=== PATIENT | male | born 1940 | race Two or more races ===

== ENCOUNTER 2020-03-01 07:21 | Inpatient (IN) | payer MEDICARE, MEDICAID ==
[~2020-03-01] VITALS: Ht 170.2 cm; Wt 60.6 kg
[2020-03-01 08:26] LABS: Platelet Count (auto) 129 10^3/uL (140-450)
[2020-03-01 08:28] LABS: Hemoglobin 7.8 g/dL (13.5-17.5); Mean Corpuscular Hgb Conc. 29.1 g/dL (32.0-36.0); Mean Corpuscular Volume 58.6 fL (80.0-100.0)
[2020-03-01 08:30] LABS: Red Cell Distribution Width 22.8 % (11.8-14.3)
[2020-03-01 08:32] LABS: White Blood Cell 1.5 10^3/uL (4.4-10.8)
[2020-03-01 08:34] LABS: Band Neutrophils % (manual) 0; Basophils % (manual) 0 (0.0-2.0); Blast Cells 0; Metamyelocytes % 0; Myelocytes % 0; Promyelocytes % 0; Reactive Lymphocytes 0
[2020-03-01 08:37] LABS: Albumin 2.5 g/dL (3.4-5.0); Calcium 8.1 mg/dL (8.5-10.1); Potassium 3.8 mmol/L (3.5-5.1)
[2020-03-01 08:42] LABS: BUN/Creatinine Ratio 22.4; Bilirubin, Total 0.8 mg/dL (0.2-1.0); Total Protein 8.1 g/dL (6.4-8.2)
[2020-03-01 10:56] LABS: Urine Bacteria NONE SEEN /hpf (None Seen); Urine Blood Negative /uL (Negative); Urine Mucus FEW (None Seen); Urine Specific Gravity 1.019 (1.001-1.035); Urine WBC <1 /hpf (0 - 3)
[2020-03-01 12:02] LABS: Eosinophils % (manual) 4 (0-7); Lymphocytes % (manual) 34 (10.0-50.0); Monocytes % (manual) 10 (0-12)
[2020-03-01] MEDS ORDERED: MORPHINE SULF INJ 2 MG/ML SYRINGE 1ML IV PRN ×3 (13:15→16:45)
[2020-03-01] MEDS ORDERED: NITROGLYCERIN 0.4 MG SL TAB SL PRN ×2 (13:15→16:45)
[2020-03-01] MEDS ORDERED: DOCUSATE SOD 100 MG CAP PO PRN (16:45)
[2020-03-01] MEDS ORDERED: ACETAMINOPHEN 325 MG TAB PO PRN (16:45)
[2020-03-01] MEDS ORDERED: LORazepam 0.5 MG TAB PO PRN (16:45)
[2020-03-01] MEDS ORDERED: LISINOPRIL 20 MG TAB PO ONE (16:45)
[2020-03-01] MEDS ORDERED: HYDROcodone-ACET 5/325MG TAB PO PRN (16:45)
[2020-03-01] MEDS ORDERED: ONDANSETRON HCL 4 MG/2 ML VIAL IV PRN (16:45)
[2020-03-01] MEDS ORDERED: ALUM & MAG HYDROX-SIMETH LIQ(MAALOX) 30 ML PO PRN (16:45)
[2020-03-01] MEDS: SODIUM CHLORIDE 0.9% 1,000 ML IV SCH (17:00)
[2020-03-01 19:33] LABS: Cholesterol 69 mg/dL (< 200); HDL Cholesterol 20 mg/dL (40-59); LDL Cholesterol 44 mg/dL (< 100); Triglycerides 65 mg/dL (< 150)
[2020-03-01] MEDS: ATORVASTATIN 20 MG TAB PO SCH (21:59)
[2020-03-01] MEDS: hydrALAZINE HCL 20 MG/ML VL IV PRN (22:00)
[2020-03-02 00:30] VITALS: BP 129/70
--- NOTE | 2020-03-02 00:30 | NUR ---
Telemetry admit from ER DIANA MAJOR admitted to Telemetry unit after SBAR received. Patient oriented to IVIS JACKSON, RN primary RN, unit, room, bed, and unit policies regarding patient care and visiting hours. Patient now on continuous telemetry monitoring, tele box #28 and telemetry reading on arrival to unit is 98 HR. Patient placed on bedside oxygen, weighed by bedscale and encouraged to call if they need something. All questions and concerns addressed in burkinan patient verbalized understanding.
--- NOTE | 2020-03-02 01:00 | NUR ---
no home meds Patient states he takes no home medication, He states he has no diseases. Call light within reach. Will continue to monitor.
[2020-03-02 05:00] VITALS: BP 151/81
[2020-03-02 05:13] LABS: Basophils # (auto) 0 10 ^3/uL (0-0.2); Basophils % (auto) 0.9 % (0.0-2.0); Hemoglobin 7.3 g/dL (13.5-17.5); Lymphocytes # (auto) 0.4 10 ^3/uL (0.4-5.4); Monocytes # (auto) 0.1 10 ^3/uL (0-1.3); Neutrophils # (auto) 0.8 10 ^3/uL (1.6-8.6)
[2020-03-02 05:16] LABS: Eosinophils # (auto) 0 10 ^3/uL (0-0.8); Eosinophils % (auto) 3.5 % (0.0-7.0); Lymphocytes % (auto) 31.1 % (10.0-50.0); Mean Corpuscular Hemoglobin 17.3 pg (28.0-32.0); Mean Corpuscular Hgb Conc. 29.3 g/dL (32.0-36.0); Mean Corpuscular Volume 58.9 fL (80.0-100.0); Monocytes % (auto) 9.8 % (0.0-12.0); Neutrophils % (auto) 54.7 % (37.0-80.0); Nucleated Red Blood Cells % 0.2 %; Platelet Count (auto) 107 10^3/uL (140-450); Red Blood Cells 4.25 10^6/uL (4.5-5.90)
[2020-03-02 05:33] LABS: Chloride 117 mmol/L (98-107); Potassium 3.6 mmol/L (3.5-5.1); Sodium 142 mmol/L (136-145)
[2020-03-02 05:35] LABS: % Iron Saturation 5.1 % (20-55)
[2020-03-02 05:39] LABS: INR 1.24 (0.9-1.15); Partial Thromboplastin Time 27.9 sec (23.0-31.2)
[2020-03-02 05:47] LABS: Alanine Aminotransferase 16 U/L (16-61); Albumin 2.1 g/dL (3.4-5.0); Alkaline Phosphatase 123 U/L (45-117); Anion Gap 5 (5-15); Aspartate Aminotransferase 39 U/L (15-37); BUN/Creatinine Ratio 25.7; Bilirubin, Total 0.7 mg/dL (0.2-1.0); Blood Urea Nitrogen 19 mg/dL (7-18); CRP High Sensitivity 1.73 mg/dL (< 0.3); Calcium 7.5 mg/dL (8.5-10.1); Carbon Dioxide 20 mmol/L (21-32); GFR African American 131 mL/min; GFR Non-African American 108 mL/min; Glucose 80 mg/dL (74-106); Lactate Dehydrogenase 162 U/L (87-241); Magnesium 2.1 mg/dL (1.6-2.6); Phosphorus 2.4 mg/dL (2.5-4.90); Total Protein 7.4 g/dL (6.4-8.2); Uric Acid 5.1 mg/dL (3.5-7.2)
[2020-03-02] MEDS: hydrALAZINE HCL 20 MG/ML VL IV PRN (05:54)
[2020-03-02 06:04] LABS: Red Cell Distribution Width 22.6 % (11.8-14.3)
[2020-03-02 06:05] LABS: White Blood Cell 1.6 10^3/uL (4.4-10.8)
--- NOTE | 2020-03-02 06:05 | NUR ---
CRITICAL LAB WBC 1.6. Patients previous WBC 1.5 yesterday morning. Patient has a hematology/oncology consult. Will continue to monitor. Hospitalist aware.
--- NOTE | 2020-03-02 07:00 | NUR ---
Opening Shift Note Received report on the patient. Awake lying in bed. Patient shows no signs of distress at this time. Discussed the plan of care with the patient. Bed in lowest position, side rails up x2, and the call light is within reach.
--- NOTE | 2020-03-02 07:39 | NUR ---
closing note Endorsed care to day shift RN no distress noted.
[2020-03-02 09:08] VITALS: BP 107/55
[2020-03-02] MEDS: SODIUM CHLORIDE 0.9% 1,000 ML IV SCH (09:42)
[2020-03-02] MEDS: LISINOPRIL 20 MG TAB PO SCH (09:43)
--- NOTE | 2020-03-02 11:32 | NUR ---
Assessment Patient is an 79-year-old male who is alert and oriented. Patient primary language is Ecuadorean. Per patient prior to admission he lived with Syed. Patient advise me to speak to Syed in regards of any discharge plan. Placed call to Syed ). Per Syed she is patient caregiver. Per Syed patient functioned with assistance. Per Syed she helps patient with his ADLs. Per Syed patient has a walker, wheelchair and cane for home use. Per Syed she has been having difficulties caring for patient stating patient has difficulty walking and is very weak and would like for him to be placed at a skill nursing facility for rehabilitation. Advised patient there is a social service consult for SNF placement. Provided Information and choice letter. Per Syed she does not have any preference. Informed Syed clinical information will be faxed to [facility]. Informed Syed she has the right to participate in all discharge planning. Syed verbalized understanding and agreed to discharge plan. Faxed clinical information to [facility]. Per Bebe with [facility] they can accept patient but they will need a (-) COVID test before patient can transfer to facility. Informed DOMINIQUE Mcdonnell a COVID test will be needed before patient can be transfer to a skill nursing facility. Addendum: 03/02/20 at 1138 by TYRONE HOBBS Amended: Links added.
[2020-03-02 13:00] VITALS: BP 106/63
--- NOTE | 2020-03-02 13:09 | NUR ---
Dr Swanson at bedside. No new orders received
[2020-03-02 14:41] LABS: Ferritin 5.4 ng/mL (10-322)
--- NOTE | 2020-03-02 15:30 | NUR ---
D/C planning [facility] can also accept patient.
[2020-03-02 16:00] LABS: Hepatitis B Surface Antigen Negative (Negative)
[2020-03-02 16:01] LABS: Hepatitis C Antibody Negative (Negative)
[2020-03-02 17:00] VITALS: BP 138/78
[2020-03-02 18:59] LABS: Urine WBC None Seen /hpf (0 - 3)
[2020-03-02 19:25] LABS: Alcohol, Urine < 3.0 mg/dL (0-10); Amphetamine Screen, Urine NEGATIVE (NEGATIVE); Barbiturate Scree,Urine NEGATIVE (NEGATIVE); Benzodiazephine Screen, Urine NEGATIVE (NEGATIVE); Cannabinoid Screen, Urine NEGATIVE (NEGATIVE); Cocaine Screen, Urine NEGATIVE (NEGATIVE); Opiate Scree,Urine NEGATIVE (NEGATIVE); Phencyclidine Screen, Urine NEGATIVE (NEGATIVE)
[2020-03-02 19:47] LABS: Urine Bacteria NONE SEEN /hpf (None Seen); Urine Blood Negative /uL (Negative); Urine Specific Gravity 1.018 (1.001-1.035)
[2020-03-02 20:33] LABS: % Iron Saturation 5.9 % (20-55)
[2020-03-02] MEDS: ATORVASTATIN 20 MG TAB PO SCH (21:52)
[2020-03-02 22:00] VITALS: BP 140/70
[2020-03-03] MEDS: SODIUM CHLORIDE 0.9% 1,000 ML IV SCH ×2 (02:23→18:01)
--- NOTE | 2020-03-03 02:46 | NUR ---
IV insertion IV access obtained, via clean sterile technique by inserting 22 gauge catheter at left upper arm after 1 attempt. IV secured properly. No trauma to site. Patient tolerated well.
[2020-03-03 05:00] VITALS: BP 141/68
[2020-03-03 08:35] LABS: % Iron Saturation 5.1 % (20-55)
[2020-03-03 08:43] LABS: Basophils # (auto) 0 10 ^3/uL (0-0.2); Eosinophils # (auto) 0.1 10 ^3/uL (0-0.8); Lymphocytes # (auto) 0.6 10 ^3/uL (0.4-5.4); Monocytes # (auto) 0.2 10 ^3/uL (0-1.3); Neutrophils # (auto) 0.6 10 ^3/uL (1.6-8.6)
[2020-03-03 08:44] LABS: Basophils % (auto) 0.4 % (0.0-2.0); Eosinophils % (auto) 5.2 % (0.0-7.0); Hematocrit 23.3 % (41.0-53.0); Lymphocytes % (auto) 37.9 % (10.0-50.0); Mean Corpuscular Hemoglobin 17.3 pg (28.0-32.0); Mean Corpuscular Hgb Conc. 29.7 g/dL (32.0-36.0); Mean Corpuscular Volume 58.4 fL (80.0-100.0); Monocytes % (auto) 13.2 % (0.0-12.0); Neutrophils % (auto) 43.3 % (37.0-80.0); Nucleated Red Blood Cells % 0.5 %; Platelet Count (auto) 93 10^3/uL (140-450); Red Blood Cells 3.99 10^6/uL (4.5-5.90)
[2020-03-03 08:45] LABS: Red Cell Distribution Width 22.6 % (11.8-14.3)
[2020-03-03 08:48] LABS: Hemoglobin 6.9 g/dL (13.5-17.5); White Blood Cell 1.5 10^3/uL (4.4-10.8)
[2020-03-03 09:00] VITALS: BP 125/51
[2020-03-03] MEDS: LISINOPRIL 20 MG TAB PO SCH (10:00)
[2020-03-03 13:00] VITALS: BP 149/73
[2020-03-03 13:41] VITALS: BP 149/73
[2020-03-03 13:55] VITALS: BP 154/74
[2020-03-03 17:00] VITALS: BP 156/84
--- NOTE | 2020-03-03 20:22 | NUR ---
IV DC'd Upon inspection, IV had infiltrated. Site was slightly reddened. IV removed with catheter fully intact, pressure dressing placed. Patient tolerated intervention well.
--- NOTE | 2020-03-03 21:06 | NUR ---
Patient Refusing IV Patient refused new IV insertion at this time. Educated patient on need for IV access, patient verbalized understanding and continued to refuse IV insertion. Will continue to monitor.
[2020-03-03] MEDS: ATORVASTATIN 20 MG TAB PO SCH (21:53)
--- NOTE | 2020-03-03 21:59 | NUR ---
Patient refused vitals per NA.
--- NOTE | 2020-03-03 23:35 | NUR ---
Opening Shift Note Assumed care of patient after receiving report. Patient is awake and alert with no S/S of distress/SOB or pain. Call light within reach, bed in lowest locked position, HOB semi fowlers. Instructed on POC and to call for assistance PRN, will continue to monitor for changes Q1hr and PRN. Addendum: 03/03/20 at 2341 by Lary Gross RN Time was around 1900.
--- NOTE | 2020-03-04 06:00 | NUR ---
Patient refused vitals. Patient resting in bed comfortably, no s/s of distress. Patient 'doesn't want to be bothered.'
[2020-03-04 08:00] VITALS: BP 148/58
[2020-03-04 09:51] LABS: Basophils # (auto) 0 10 ^3/uL (0-0.2); Eosinophils # (auto) 0.1 10 ^3/uL (0-0.8); Lymphocytes # (auto) 0.5 10 ^3/uL (0.4-5.4); Monocytes # (auto) 0.2 10 ^3/uL (0-1.3); Neutrophils # (auto) 0.8 10 ^3/uL (1.6-8.6)
[2020-03-04] MEDS: SODIUM CHLORIDE 0.9% 1,000 ML IV SCH (09:51)
[2020-03-04] MEDS: LISINOPRIL 20 MG TAB PO SCH (09:52)
[2020-03-04 09:53] LABS: Basophils % (auto) 0.8 % (0.0-2.0); Hematocrit 29.7 % (41.0-53.0); Lymphocytes % (auto) 29.9 % (10.0-50.0); Mean Corpuscular Hemoglobin 18.6 pg (28.0-32.0); Mean Corpuscular Hgb Conc. 30.2 g/dL (32.0-36.0); Mean Corpuscular Volume 61.6 fL (80.0-100.0); Neutrophils % (auto) 53.3 % (37.0-80.0); Nucleated Red Blood Cells % 0.1 %; Platelet Count (auto) 102 10^3/uL (140-450); Red Blood Cells 4.83 10^6/uL (4.5-5.90); Red Cell Distribution Width 25.3 % (11.8-14.3)
[2020-03-04 09:59] LABS: White Blood Cell 1.6 10^3/uL (4.4-10.8)
[2020-03-04 10:07] LABS: Albumin 2.4 g/dL (3.4-5.0); BUN/Creatinine Ratio 20.3; Calcium 8.2 mg/dL (8.5-10.1); Potassium 3.7 mmol/L (3.5-5.1)
[2020-03-04 10:11] LABS: Bilirubin, Total 1.1 mg/dL (0.2-1.0); Total Protein 7.8 g/dL (6.4-8.2)
[2020-03-04 12:00] VITALS: BP 137/72
--- NOTE | 2020-03-04 14:35 | NUR ---
Nutrition Assessment Notes Please refer to link for full assessment notes. Est Energy needs: 7118-3751 kcals (23-25 kcal/kgBW) Est Protein needs: 61-67 gms/day (1.0-1.1 gm/kgBW) Will continue to monitor and reassess prn. Addendum: 03/04/20 at [address] Amended: Links added.
[2020-03-04 16:58] VITALS: BP 123/62
--- NOTE | 2020-03-04 19:20 | NUR ---
Opening Shift Note Assumed care of patient after receiving report from day RN. Patient awake and alert x3, with no S/S of distress/SOB or pain. Call light within reach, bed in lowest locked position, HOB semi fowlers. Instructed on POC and to call for assist PRN, will continue to monitor for changes Q1hr and PRN.
[2020-03-04] MEDS ORDERED: LORazepam 2MG/ML-1ML VIAL IV PRN (20:45)
[2020-03-04 22:00] VITALS: BP 162/91
[2020-03-04] MEDS: ATORVASTATIN 20 MG TAB PO SCH (22:00)
[2020-03-04] MEDS: hydrALAZINE HCL 20 MG/ML VL IV PRN (22:54)
--- NOTE | 2020-03-04 23:06 | NUR ---
IV insertion Patient had been refusing new IV insertion, stating he has been poked too many times. Patient was educated with director public service about need for new IV for medication and fluid administration. Patient accepted new IV insertion. 22 gauge placed in the right forearm using clean sterile technique. Patient tolerated intervention well with no s/s of distress. IV secured.
--- NOTE | 2020-03-04 23:14 | NUR ---
Elevated BP Patient had elevated BP of 162/91 and HR 89, patient had been repositioned and slightly agitated at this time. BP was reassessed and read BP156/86 and HR 87. PRN hydralazine given at this time. Will reassess.
[2020-03-05] MEDS: SODIUM CHLORIDE 0.9% 1,000 ML IV SCH ×2 (04:00→20:40)
[2020-03-05 05:00] VITALS: BP 125/66
[2020-03-05 05:53] LABS: Basophils # (auto) 0 10 ^3/uL (0-0.2); Eosinophils # (auto) 0.1 10 ^3/uL (0-0.8); Lymphocytes # (auto) 0.6 10 ^3/uL (0.4-5.4); Mean Corpuscular Volume 60.6 fL (80.0-100.0); Monocytes # (auto) 0.2 10 ^3/uL (0-1.3); Neutrophils # (auto) 0.8 10 ^3/uL (1.6-8.6)
[2020-03-05 05:55] LABS: Basophils % (auto) 0.7 % (0.0-2.0); Eosinophils % (auto) 4.3 % (0.0-7.0); Hematocrit 27.1 % (41.0-53.0); Hemoglobin 8.3 g/dL (13.5-17.5); Lymphocytes % (auto) 35.9 % (10.0-50.0); Mean Corpuscular Hemoglobin 18.6 pg (28.0-32.0); Mean Corpuscular Hgb Conc. 30.7 g/dL (32.0-36.0); Monocytes % (auto) 12.5 % (0.0-12.0); Neutrophils % (auto) 46.6 % (37.0-80.0); Nucleated Red Blood Cells % 0.3 %; Platelet Count (auto) 125 10^3/uL (140-450); Red Blood Cells 4.47 10^6/uL (4.5-5.90)
[2020-03-05 06:08] LABS: Albumin 2.2 g/dL (3.4-5.0); Calcium 7.7 mg/dL (8.5-10.1); Potassium 3.5 mmol/L (3.5-5.1)
[2020-03-05 06:09] LABS: Red Cell Distribution Width 24.9 % (11.8-14.3)
[2020-03-05 06:10] LABS: White Blood Cell 1.6 10^3/uL (4.4-10.8)
[2020-03-05 06:11] LABS: BUN/Creatinine Ratio 31.3; Bilirubin, Total 0.8 mg/dL (0.2-1.0); Total Protein 7.3 g/dL (6.4-8.2)
--- NOTE | 2020-03-05 06:59 | NUR ---
Critical lab WBC of 1.6. MD aware. No change.
[2020-03-05 08:00] VITALS: BP 118/67
--- NOTE | 2020-03-05 08:10 | NUR ---
MD ROUNDS DR Sanaz MONTERO AT BEDSIDE. METAL WEATHER STRIPPER AT BEDSIDE. PATIENT AGREEING TO MRI. WILL CONTINUE TO MONITOR
--- NOTE | 2020-03-05 08:15 | NUR ---
Opening Shift Note Assumed care of patient, awake and alert. No S/S of distress/SOB or pain. Bed in lowest/locked position, bed rails up x2, call light within reach. Instructed on POC and to call for assist PRN. Will continue to monitor for changes Q1hr and PRN.
--- NOTE | 2020-03-05 08:15 | NUR ---
IV FLUIDS PATIENT REFUSING IV FLUIDS AT THIS TIME. WILL CONTINUE TO MONITOR
[2020-03-05] MEDS: LISINOPRIL 20 MG TAB PO SCH (09:05)
--- NOTE | 2020-03-05 11:35 | NUR ---
ELECTROENCEPHALOGRAM EEG COMPLETED AT BEDSIDE. PRIMARY RN ISIDRO AWARE.
[2020-03-05 11:56] VITALS: BP 129/76
[2020-03-05 16:51] VITALS: BP 131/73
--- NOTE | 2020-03-05 19:40 | NUR ---
Opening Shift Note Assumed care of patient, awake and alert. No S/S of distress/SOB or pain. Bed is locked in lowest position with call light within reach. Instructed on POC and to call for assist PRN, will continue to monitor for changes Q1hr and PRN.
[2020-03-05] MEDS: ATORVASTATIN 20 MG TAB PO SCH (21:56)
[2020-03-05 22:00] VITALS: BP 122/71
[2020-03-06 05:00] VITALS: BP 147/72
[2020-03-06 05:08] LABS: Basophils # (auto) 0 10 ^3/uL (0-0.2); Basophils % (auto) 0.7 % (0.0-2.0); Eosinophils # (auto) 0.1 10 ^3/uL (0-0.8); Hemoglobin 8.6 g/dL (13.5-17.5); Lymphocytes # (auto) 0.6 10 ^3/uL (0.4-5.4); Nucleated Red Blood Cells % 0.2 %
[2020-03-06 05:10] LABS: Hematocrit 28.7 % (41.0-53.0); Lymphocytes % (auto) 38.4 % (10.0-50.0); Mean Corpuscular Hemoglobin 18.3 pg (28.0-32.0); Mean Corpuscular Volume 61.2 fL (80.0-100.0); Monocytes # (auto) 0.2 10 ^3/uL (0-1.3); Monocytes % (auto) 14.2 % (0.0-12.0); Neutrophils # (auto) 0.7 10 ^3/uL (1.6-8.6); Neutrophils % (auto) 40.7 % (37.0-80.0); Platelet Count (auto) 86 10^3/uL (140-450); Red Blood Cells 4.69 10^6/uL (4.5-5.90)
[2020-03-06 05:26] LABS: Albumin 2.2 g/dL (3.4-5.0); Calcium 7.7 mg/dL (8.5-10.1); Potassium 3.7 mmol/L (3.5-5.1)
--- NOTE | 2020-03-06 05:27 | NUR ---
CRITICAL WBC Critical lab WBC of 1.6. MD is aware of the critically low WBC.
[2020-03-06 05:28] LABS: Red Cell Distribution Width 24.7 % (11.8-14.3); White Blood Cell 1.6 10^3/uL (4.4-10.8)
[2020-03-06 05:29] LABS: BUN/Creatinine Ratio 25.4; Bilirubin, Total 0.8 mg/dL (0.2-1.0); Total Protein 7.4 g/dL (6.4-8.2)
[2020-03-06 08:47] VITALS: BP 122/64
[2020-03-06] MEDS: LISINOPRIL 20 MG TAB PO SCH (09:20)
[2020-03-06] MEDS ORDERED: ASPirin-EC 81 mg tab PO SCH (10:00)
--- NOTE | 2020-03-06 11:30 | NUR ---
D/C Planning Called patient caregiver Syed this morning advising her patient has been accepted to [facility]. Per Syed patient can go to [facility]. Placed follow up called to Jacinda with [facility] [phone] advising her patient it ready to discharge. per Jacinda patient can go to room 23a accepting MD, Dr. Marshall. Transportation has been arranged with [facility] at 12:30 via [employer]. Informed bedside nurse.
[2020-03-06 12:40] VITALS: BP 109/57
--- NOTE | 2020-03-06 12:59 | NUR ---
REPORT CALLED TO MAMI TORRES, RECEIVING NURSE AT [facility]. IV AND TELE BOX REMOVED. V/S STABLE. PT TRANSFERRED TO [facility] VIA AMBULANCE WITH [facility] IN ATTENDANCE.
== END 2020-03-06 12:45 | DRG 64 ==
LOC: ER 07:21 → EDBD 07:21 → TELE 07:22 → TELE-CENTR 23:49
PROVIDERS: ADMIT Hospitalist; ATTEND Family Medicine
PROC: 30233P1 Transfusion of Nonautologous Frozen Red Cells into Peripheral Vein, Percutaneous Approach (ICD-10-PCS; principal; 2020-03-03)
DX: I63.9 Cerebral infarction, unspecified (principal); G93.41 Metabolic encephalopathy; E43 Unspecified severe protein-calorie malnutrition; D61.818 Other pancytopenia; D50.9 Iron deficiency anemia, unspecified; E78.5 Hyperlipidemia, unspecified; F01.50 Vascular dementia, unspecified severity, without behavioral disturbance, psychotic disturbance, mood disturbance, and anxiety; I11.9 Hypertensive heart disease without heart failure; M06.9 Rheumatoid arthritis, unspecified; R47.81 Slurred speech; R53.81 Other malaise; M19.90 Unspecified osteoarthritis, unspecified site; E86.1 Hypovolemia; E78.00 Pure hypercholesterolemia, unspecified; F17.200 Nicotine dependence, unspecified, uncomplicated; Z74.01 Bed confinement status; I25.10 Atherosclerotic heart disease of native coronary artery without angina pectoris; R29.6 Repeated falls; Z82.49 Family history of ischemic heart disease and other diseases of the circulatory system; Z83.3 Family history of diabetes mellitus; Z20.828 Contact with and (suspected) exposure to other viral communicable diseases; T45.1X5A Adverse effect of antineoplastic and immunosuppressive drugs, initial encounter
CPT/HCPCS: 36415; 70450; 70551; 71045; 80053; 80061; 80307; 81001; 82306; 82607; 82728; 83036; 83540; 83550; 83615; 83735; 83880; 84100; 84436; 84443; 84484; 84550; 85007; 85025; 85027; 85045; 85610; 85652; 85730; 86141; 86803; 86850; 86900; 86901; 86920; 87086; 87340; 93005; 93886; 95819; G0378

== ENCOUNTER 2021-05-20 19:57 | Inpatient (IN) | payer MEDICARE, MEDICAID ==
[~2021-05-20] VITALS: Ht 170.2 cm; Wt 59.8 kg
[2021-05-20 20:53] LABS: INR 1.23 (0.9-1.15); Partial Thromboplastin Time 31.6 sec (23.6-33.0)
[2021-05-20 20:58] LABS: Albumin 2.4 g/dL (3.4-5.0); Potassium 4.4 mmol/L (3.5-5.1)
[2021-05-20 21:02] LABS: BUN/Creatinine Ratio 40.3; Bilirubin, Total 1.4 mg/dL (0.2-1.0); Total Protein 7.7 g/dL (6.4-8.2)
[2021-05-20 21:12] LABS: Basophils # (auto) 0 10 ^3/uL (0-0.2); Basophils % (auto) 0.4 % (0.0-2.0); Eosinophils # (auto) 0.1 10 ^3/uL (0-0.8); Eosinophils % (auto) 3.3 % (0.0-7.0); Hematocrit 36.5 % (41.0-53.0); Hemoglobin 12.5 g/dL (13.5-17.5); Lymphocytes # (auto) 0.7 10 ^3/uL (0.4-5.4); Lymphocytes % (auto) 28.1 % (10.0-50.0); Mean Corpuscular Hemoglobin 30.8 pg (28.0-32.0); Mean Corpuscular Hgb Conc. 34.2 g/dL (32.0-36.0); Mean Corpuscular Volume 90.1 fL (80.0-100.0); Monocytes # (auto) 0.3 10 ^3/uL (0-1.3); Monocytes % (auto) 10.9 % (0.0-12.0); Neutrophils # (auto) 1.4 10 ^3/uL (1.6-8.6); Neutrophils % (auto) 57.3 % (37.0-80.0); Nucleated Red Blood Cells % 0.8 %; Red Blood Cells 4.05 10^6/uL (4.5-5.90); Red Cell Distribution Width 15.5 % (11.8-14.3); White Blood Cell 2.5 10^3/uL (4.4-10.8)
[2021-05-20] MEDS ORDERED: MORPHINE SULFATE INJECTION 2 MG/ML SYRG IV PRN (23:30)
[2021-05-20] MEDS ORDERED: MORPHINE SULFATE 4 MG/ML SYR/VIAL IV PRN (23:30)
[2021-05-20] MEDS ORDERED: HYDROcodone-ACET 5/325MG TAB PO PRN (23:30)
[2021-05-20] MEDS ORDERED: DOCUSATE SOD 100 MG CAP PO PRN (23:30)
[2021-05-20] MEDS ORDERED: NITROGLYCERIN 0.4 MG SL TAB SL PRN (23:30)
[2021-05-20] MEDS ORDERED: ONDANSETRON HCL 4 MG/2 ML VIAL IV PRN (23:30)
[2021-05-20] MEDS ORDERED: ACETAMINOPHEN 325 MG TAB PO PRN (23:30)
[2021-05-20] MEDS ORDERED: D5W/SOD CHL 0.45% 1,000 ML IV ONE (23:45)
[2021-05-21] MEDS ORDERED: VANCOMYCIN PER PHARMACY 0 MG IV SCH (00:15)
[2021-05-21] MEDS ORDERED: VANCOMYCIN 1GM/250ML 250 ML IV ONE (00:30)
[2021-05-21 03:07] VITALS: BP 151/89
[2021-05-21 05:00] VITALS: BP_SYST 151; BP_SYST 99; BP_DIAS 75; BP_DIAS 89
[2021-05-21 09:00] VITALS: BP 132/76
[2021-05-21 09:07] LABS: Calcium 8.4 mg/dL (8.5-10.1)
[2021-05-21 09:10] LABS: BUN/Creatinine Ratio 33.9; Bilirubin, Total 1.3 mg/dL (0.2-1.0)
[2021-05-21 09:40] LABS: Basophils # (auto) 0 10 ^3/uL (0-0.2); Basophils % (auto) 0.5 % (0.0-2.0); Eosinophils # (auto) 0.1 10 ^3/uL (0-0.8); Eosinophils % (auto) 5.5 % (0.0-7.0); Hematocrit 35.2 % (41.0-53.0); Hemoglobin 12.1 g/dL (13.5-17.5); Lymphocytes # (auto) 0.6 10 ^3/uL (0.4-5.4); Lymphocytes % (auto) 30.7 % (10.0-50.0); Mean Corpuscular Hemoglobin 31.7 pg (28.0-32.0); Mean Corpuscular Hgb Conc. 34.3 g/dL (32.0-36.0); Mean Corpuscular Volume 92.2 fL (80.0-100.0); Monocytes # (auto) 0.2 10 ^3/uL (0-1.3); Monocytes % (auto) 10.4 % (0.0-12.0); Neutrophils # (auto) 1.1 10 ^3/uL (1.6-8.6); Neutrophils % (auto) 52.9 % (37.0-80.0); Nucleated Red Blood Cells % 0.4 %; Red Blood Cells 3.82 10^6/uL (4.5-5.90); Red Cell Distribution Width 15.7 % (11.8-14.3)
[2021-05-21] MEDS ORDERED: FAMOTIDINE (10MG/ML) 2ML VL IV SCH (10:00)
[2021-05-21] MEDS: MULTIPLE VITAMIN TAB PO SCH (10:03)
[2021-05-21] MEDS: ZINC SULFATE 220mg CAP or TAB PO SCH (10:03)
[2021-05-21] MEDS: ASCORBIC ACID 500 MG TAB PO SCH ×2 (10:03→21:28)
[2021-05-21 13:00] VITALS: BP 132/70
[2021-05-21 16:59] VITALS: BP 141/74
[2021-05-21] MEDS: VANCOMYCIN 750mg/250ml 250 ML IV SCH (20:46)
[2021-05-21 22:00] VITALS: BP 137/78
[2021-05-22 05:00] VITALS: BP 153/73
[2021-05-22] MEDS: ZINC SULFATE 220mg CAP or TAB PO SCH (08:57)
[2021-05-22] MEDS: ASCORBIC ACID 500 MG TAB PO SCH ×2 (08:57→21:17)
[2021-05-22] MEDS: MULTIPLE VITAMIN TAB PO SCH (08:57)
[2021-05-22 09:00] VITALS: BP_SYST 116; BP_SYST 143; BP_DIAS 79; BP_DIAS 86
[2021-05-22 13:00] VITALS: BP 111/74
[2021-05-22] MEDS: VANCOMYCIN 750mg/250ml 250 ML IV SCH (14:34)
[2021-05-22 17:00] VITALS: BP 128/89
[2021-05-22 22:00] VITALS: BP 146/69
[2021-05-23 05:00] VITALS: BP 114/61
[2021-05-23 09:24] VITALS: BP 136/78
[2021-05-23] MEDS: VANCOMYCIN 750mg/250ml 250 ML IV SCH (09:55)
[2021-05-23] MEDS: ZINC SULFATE 220mg CAP or TAB PO SCH (09:56)
[2021-05-23] MEDS: MULTIPLE VITAMIN TAB PO SCH (09:56)
[2021-05-23] MEDS: ASCORBIC ACID 500 MG TAB PO SCH ×2 (09:56→21:20)
[2021-05-23 13:18] VITALS: BP 146/74
[2021-05-23] MEDS: POVIDONE IODINE 10 % TOPICAL OINT 30GM TOP SCH (16:56)
[2021-05-23 17:00] VITALS: BP 145/70
[2021-05-23 22:00] VITALS: BP 140/106
[2021-05-24 05:00] VITALS: BP 152/76
[2021-05-24 09:00] VITALS: BP 91/62
[2021-05-24] MEDS ORDERED: MULTTAB99 PO (09:35)
[2021-05-24] MEDS: ZINC SULFATE 220mg CAP or TAB PO SCH ×2 (09:48→10:00)
[2021-05-24] MEDS: MULTIPLE VITAMIN TAB PO SCH ×2 (09:48→10:00)
[2021-05-24] MEDS: POVIDONE IODINE 10 % TOPICAL OINT 30GM TOP SCH (09:49)
[2021-05-24] MEDS: ASCORBIC ACID 500 MG TAB PO SCH ×2 (09:49→10:00)
[2021-05-24] MEDS ORDERED: levoFLOXacin 250 MG TAB PO SCH (10:00)
== END 2021-05-24 14:50 | DRG 602 ==
LOC: ER 19:57 → EDBD 19:57 → OVERFLOW 23:29 → CENTRAL 05-21 02:20
PROVIDERS: ADMIT Nurse Practitioner Family; ATTEND Internal Medicine
DX: L03.116 Cellulitis of left lower limb (principal); E43 Unspecified severe protein-calorie malnutrition; D61.818 Other pancytopenia; Z68.1 Body mass index [BMI] 19.9 or less, adult; M06.9 Rheumatoid arthritis, unspecified; L03.115 Cellulitis of right lower limb; E88.09 Other disorders of plasma-protein metabolism, not elsewhere classified; D72.819 Decreased white blood cell count, unspecified; Z66 Do not resuscitate; M20.40 Other hammer toe(s) (acquired), unspecified foot; M24.569 Contracture, unspecified knee; I10 Essential (primary) hypertension; Z20.822 Contact with and (suspected) exposure to COVID-19; F01.50 Vascular dementia, unspecified severity, without behavioral disturbance, psychotic disturbance, mood disturbance, and anxiety; E78.5 Hyperlipidemia, unspecified; M19.90 Unspecified osteoarthritis, unspecified site; D63.8 Anemia in other chronic diseases classified elsewhere; Z86.73 Personal history of transient ischemic attack (TIA), and cerebral infarction without residual deficits
CPT/HCPCS: 36415; 71045; 73700; 80053; 80202; 82565; 85025; 85610; 85652; 85730; 87081; 87426; 93005; 96365; G0378; J3490